=== PATIENT | female | born 1990 | race Caucasian/White ===

== ENCOUNTER 2017-09-26 00:10 | Emergency (ER) | payer MEDICAID ==
[~2017-09-26] VITALS: Ht 149.9 cm; Wt 59.0 kg
[2017-09-26 00:18] VITALS: BP 109/78
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
--- NOTE | 2017-09-26 01:53 | NUR ---
PATIENT TO ER BED 2
[2017-09-26] MEDS ORDERED: IBUPROFEN 600 MG TAB PO ONE (02:30)
--- NOTE | 2017-09-26 02:42 | NUR ---
WAS NOTIFIED BY [employer]RE [employer]HT[employer]IPMENT SPECIALIST THAT CT MACHINE IS HAVING TERMINAL CLEAN AT THIS TIME, SHE WILL FOLLOW UP WITH CT TESTS AFTER
--- NOTE | 2017-09-26 03:56 | NUR ---
PT RESTING IN BED COMFORTABLY, PT REPORTS TOLERABLE PAIN. RR EVEN AND UNLABORED. ALL NEEDS MET AT THIS TIME.
[2017-09-26 04:15] VITALS: BP 106/68
--- NOTE | 2017-09-26 04:15 | NUR ---
Patient discharged with v/s stable. Written and verbal after care instructions given and explained. Patient alert, oriented and verbalized understanding of instructions. Ambulatory with steady gait. All questions addressed prior to discharge. ID band removed. Patient advised to follow up with PMD. Rx of IBUPROFEN 600MG, FLEXERIL 10MG given. Patient educated on indication of medication including possible reaction and side effects. Opportunity to ask questions provided and answered.
== END 2017-09-26 04:15 | disposition home or self-care (01) ==
LOC: MED 00:10
DX: S29.012A Strain of muscle and tendon of back wall of thorax, initial encounter (principal); S16.1XXA Strain of muscle, fascia and tendon at neck level, initial encounter; V44.9XXA Unspecified car occupant injured in collision with heavy transport vehicle or bus in traffic accident, initial encounter; Y93.89 Activity, other specified; Y92.488 Other paved roadways as the place of occurrence of the external cause; Y99.8 Other external cause status
CPT/HCPCS: 72125; 72128; 72131; 81002; 81025; 99284

== ENCOUNTER 2019-11-10 21:33 | Emergency (ER) | payer MEDICAID, OTHER ==
[~2019-11-10] VITALS: Ht 149.9 cm; Wt 54.9 kg
[2019-11-10 21:38] VITALS: BP 119/80
[2019-11-10 21:40] VITALS: BP 119/80
--- NOTE | 2019-11-10 21:43 | NUR ---
PT AMBULATED TO BED 4 WITH STEADY GAIT
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
--- NOTE | 2019-11-10 21:47 | NUR ---
BUSHRA GUTIERREZ AT BEDSIDE EVALUATING PT.
--- NOTE | 2019-11-10 21:48 | NUR ---
PT MEDICATED WITH BENADRYL PO. TOLERATED WELL. NADR
--- NOTE | 2019-11-10 21:56 | NUR ---
Patient discharged with v/s stable. Written and verbal after care instructions given and explained. Patient alert, oriented and verbalized understanding of instructions. Ambulatory with steady gait. All questions addressed prior to discharge. ID band removed. Patient advised to follow up with PMD. Rx of BENADRYL given. Patient educated on indication of medication including possible reaction and side effects. Opportunity to ask questions provided and answered.
== END 2019-11-10 21:55 | disposition home or self-care (01) ==
LOC: MED 21:33
DX: S80.861A Insect bite (nonvenomous), right lower leg, initial encounter (principal); S90.561A Insect bite (nonvenomous), right ankle, initial encounter; W57.XXXA Bitten or stung by nonvenomous insect and other nonvenomous arthropods, initial encounter; Y93.89 Activity, other specified; Y92.89 Other specified places as the place of occurrence of the external cause; Y99.8 Other external cause status
CPT/HCPCS: 99282; Q0163

== ENCOUNTER 2023-07-19 12:10 | Emergency (ER) | payer MEDICAID, OTHER ==
[~2023-07-19] VITALS: Ht 149.9 cm; Wt 56.7 kg
[2023-07-19 12:36] VITALS: BP 106/77; PULSE 82; RESP 16; TEMP 98.3; O2SAT 97
[2023-07-19] MEDS ORDERED: AMOX500C25 PO (13:05)
[2023-07-19] MEDS ORDERED: IBUP-2213 PO (13:05)
== END 2023-07-19 13:21 | disposition home or self-care (01) ==
LOC: MED 12:10
DX: S03.2XXA Dislocation of tooth, initial encounter (principal); R50.9 Fever, unspecified; R09.89 Other specified symptoms and signs involving the circulatory and respiratory systems; Z79.899 Other long term (current) drug therapy; X58.XXXA Exposure to other specified factors, initial encounter; Y93.89 Activity, other specified; Y92.89 Other specified places as the place of occurrence of the external cause; Y99.8 Other external cause status
CPT/HCPCS: 99283

== ENCOUNTER 2023-09-02 05:41 | Emergency (ER) | payer MEDICAID, OTHER ==
[~2023-09-02] VITALS: Ht 149.9 cm; Wt 59.0 kg
[~2023-09-02 05:41] MED LIST: AMOX500C25 PO; IBUP-2213 PO
[2023-09-02 05:50] VITALS: BP 124/77; PULSE 100; RESP 18; TEMP 97.9; O2SAT 98
[2023-09-02 06:15] VITALS: BP 124/77; PULSE 100; RESP 18; TEMP 97.9; O2SAT 98
[2023-09-02] MEDS ORDERED: IBUPROFEN 600 MG TAB PO ONE (06:30)
[2023-09-02] MEDS ORDERED: PENICILLIN V POTASSIUM 250 MG TAB PO ONE (06:30)
[2023-09-02] MEDS ORDERED: PENI500T20 PO (06:34)
[2023-09-02] MEDS ORDERED: IBUP-2218 PO (06:34)
== END 2023-09-02 06:38 | disposition home or self-care (01) ==
LOC: MED 05:41
DX: K02.9 Dental caries, unspecified (principal); Z79.1 Long term (current) use of non-steroidal anti-inflammatories (NSAID); Z79.899 Other long term (current) drug therapy
CPT/HCPCS: 99283